=== PATIENT | female | born 1950 | race Caucasian/White ===

== ENCOUNTER 2023-08-16 13:00 | Outpatient (RCR) | payer MEDICARE, BC | END 2023-08-19 | disposition home or self-care (01) | LOC: WSPT | DX: R26.89 Other abnormalities of gait and mobility (principal) ==

== ENCOUNTER 2023-10-02 10:30 | Outpatient (RCR) | payer MEDICARE, BC | END 2023-10-02 12:30 | disposition home or self-care (01) | LOC: WSPT 10:30 | DX: R26.89 Other abnormalities of gait and mobility (principal) ==